=== PATIENT | male | born 1990 | race American Indian/Alaskan Native ===

== ENCOUNTER 2019-03-11 12:32 | Emergency (ER) | payer SELFPAY ==
--- NOTE | 2019-03-11 12:58 | Emergency Department Report ---
Blank Doc - Documentation Documentation: 28 y/o male comes in for psych issues. Patient is hearing voices and is pacing. Informed Ceasar charge nurse twice for needing a room. Patient eloped at 1300.
== END 2019-03-11 13:00 | disposition left against medical advice (07) ==
LOC: ED 12:32
DX: R44.0 Auditory hallucinations (principal); Z53.21 Procedure and treatment not carried out due to patient leaving prior to being seen by health care provider